=== PATIENT | male | born 1980 | race Caucasian/White ===

== ENCOUNTER 2016-04-21 21:41 | Emergency (ER) | payer OTHER ==
[~2016-04-21] VITALS: Ht 170.2 cm; Wt 72.0 kg
[2016-04-21 21:54] VITALS: BP 113/81; PULSE 72; RESP 18; O2SAT 98
--- NOTE | 2016-04-21 22:28 | ED.REPORT ---
HPI-General Illness Date of Service Apr 21, 2016 ED Provider: Joao Pham MD Patient is a 35 year old male with a history chronic back pain with long-term opiate use who presents to the ED in withdrawal after last using pain medication at 10am this morning. Patient reports associated nausea, chills, and weakness. The patient states that he was on Vicodin for the past 5 years, prescribed by Dr. Shrestha of the [facility], 4x 5mg tablets per day, 20mg daily. His PCP stopped prescribing narcotic pain medication to all of his patients. The patient was referred to [facility], where he was prescribed medication for a short time before they were shut down this fall. The patient then began to purchase Percocet off the streets, moving up to 30mg tablets, 90-120mg per day. He states that he became "carried away" and started abusing this medication. He is now taking a large quantity, costing him hundreds of dollars per day. The patient states that he has spent away all of his savings. Patient states that he has been weaning himself down, but he feels horrible when he doesn't use for several hours. The patient previously was on Suboxone for 3 weeks, but one day took a 30mg Vicodin on a whim. He thought that he could just use occasionally but he relapsed. The patient lives in [place] but worked in [place] previously, doing iron work on construction sites. He originally injured his back at work, but states that his back is now causing him less time. The patient was recently laid off on April 05. The patient is a single dad, having full custody of his two children. The patient's parents help him out a lot with the children and he rents a trailer. He would like to get clean in order to better take care of them. Nursing Notes Stated Complaint: DETOX Chief Complaint: Substance Abuse Nursing Notes Reviewed: Yes Allergies: Coded Allergies: azithromycin (Verified Allergy, Intermediate, Dizzy, N/V, 04/21/16) Scheduled Buprenorphine HCl/Naloxone HCl (Suboxone 8 mg-2 mg Sl Film) 1 Each Film 1 EACH SL BID General Time Seen by : 22:27 Chief Complaint Other (requesting Suboxone) Hx Obtained From: Patient Arrived By: Walk-in Sudden in Onset?: No Onset Occurred: 13 - 16 hours ago Symptom Duration: Since onset Severity: Current: No pain currently Severity: Maximum: No pain Recent Healthcare: No recent doctor visit, No recent hospitalization Similar Sx Previous: No Past Medical History Past Medical History chronic back pain Past Surgical History none reported Smoking History Unknown if Ever Smoker Social History Lives in [facility]. Has full custody of his 2 children. Works in construction and recently laid off. Alcohol Use: "Social" Drug Use: Vicodin, Percocet Other Social History: Good social support, Lives with children, From out of town Ambulatory Status Independent Review of Systems Full Review of Systems Constitutional: Reports: Chills, Weakness - generalized GI: Reports: Nausea, Denies: Vomiting Complete sys rev & neg: except as marked. Physical Exam Vital Signs Vital Signs Date Time Temp Pulse Resp B/P Pulse Ox O2 Delivery O2 Flow Rate FiO2 04/21/16 23:55 69 18 110/76 98 Room Air 04/21/16 21:54 36.6 72 18 113/81 98 Room Air Initial VS: Reviewed, Vital signs normal Head / Eyes: Atraumatic, Normocephalic, PERRL ENT: Conjunctiva normal, No scleral icterus Neck: Supple, Full range of motion Extremities: Vascular intact, Neuro intact Skin: Warm, Dry, No cyanosis Neurologic: Alert, Oriented, Nonfocal Psychiatric: Mood/affect normal, Behavior normal, Normal thought content General/Constitutional: Awake, Alert Respiratory / Chest: Breath sounds NL, Breath sounds = bilat, No respiratory distress, No rales, No rhonchi, No wheezing Cardiovascular: Heart rate NL, Regular rhythm, No murmurs Re-Eval/Medical Decision Med Decision/Clinical Course 35-year-old male with a history of chronic pain who lost his prescriber when [facility] close. He has been buying medications off the street and his use has escalated significantly. He just wants to quit. He was given buprenorphine/naloxone 10/26 (Suboxone), one pill or strip dissolved orally twice a day, #20 prescription written. We discussed precipitated withdrawal and the proper use of this medication. He will contact [facility] for ongoing pain and opioid dependence management. Source of Hx: Old records Time of Eval: 23:13 Patient Status: Condition improved Re-Evaluation/Progress Note: He will be started on Suboxone, he will need to wait until tomorrow morning to use it. Patient understands and agrees with the plan to be discharged home. Discharge instructions and follow-up discussed. All questions were addressed. Return to the ED warnings given. Counseled Regarding: Diagnosis, Need for follow-up, When/why to return to ED Discharge & Departure Primary Impression: Opioid dependence with withdrawal Disposition: Home Discharge Condition All VS Reviewed: Yes Condition: Stable Patient Instructions: Buprenorphine/Naloxone (By mouth) Additional Instructions: Buprenorphine/naloxone / (Suboxone), one pill or strip dissolved orally twice a day, #20 prescription written. You can start this medication as we discussed 24 hours after your last oxycodone use. Please see attached discussion of precipitated withdrawal and how to prevent it. Contact [facility] for ongoing pain and opioid dependence management. Referrals: JAY SHRESTHA MD (PCP) [facility] Scribe Attestation Portions of this note were transcribed by Mandi You. I, Dr. Pham personally performed the history, physical exam and medical decision-making; I reviewed and confirmed the accuracy of the information in the transcribed note. Signed by: Nithya Murphy, 04/21/2016 [id number] copies to: JAY SHRESTHA MD, Howard L MD Apr 21, 2016 22:28 Mandi You Apr 21, 2016 23:03
[2016-04-21] MEDS ORDERED: BUPR1FIL3 SL (23:41)
[2016-04-21 23:55] VITALS: BP 110/76; PULSE 69; RESP 18; O2SAT 98
== END 2016-04-21 23:55 | disposition home or self-care (01) ==
LOC: SED 21:41
DX: F11.23 Opioid dependence with withdrawal (principal); R11.0 Nausea; R68.83 Chills (without fever); R53.1 Weakness; M54.9 Dorsalgia, unspecified; G89.29 Other chronic pain; Z88.1 Allergy status to other antibiotic agents